=== PATIENT | female | born 1980 ===

== ENCOUNTER 2019-12-03 09:47 | Outpatient (CLI) | payer OTHER ==
--- NOTE | 2019-12-03 14:13 | Ultrasound Report ---
COMPLETE RIGHT BREAST ULTRASOUND HISTORY: Breast pain. COMPARISON: 10/01/2019 [facility] mammogram and bilateral breast ultrasound. FINDINGS: Complete sonographic evaluation including imaging of the four quadrants and subareolar aspe ct of the right breast was performed and demonstrated numerous benign cysts. The largest is at 10:00 4 cm from the nipple and measures 8 x 4 x 6 mm. It correlates with a cyst described previously to be at 8:00 on the [facility] ultrasound. A complex cyst at 10:00 4 cm from the nipple measures 8 x 4 x 6 mm. A complex cyst at 9:00 5 cm from the nipple measures 5 x 3 x 4 mm. A complex cyst at 1:00 4 cm from th e nipple measures 6 x 4 x 3 mm. No solid mass or suspicious shadowing. Note: A left breast ultrasou nd was not performed since left breast ultrasound had been performed on 10/01/2019 and was negative. T he bilateral mammogram was also reported to be negative. IMPRESSION: Benign cysts and no suspicious finding. Recommend clinical follow-up and routine mammographic screening based on ACS guidelines. BIRADS 2: Benign Signer Name: Albin Vega MD Signed: 12/03/2019 2:09 PM Workstation Name: [id number]
== END 2019-12-03 09:48 | disposition home or self-care (01) ==
LOC: SPVWC 09:47
PROVIDERS: ATTEND Surgery
DX: N60.01 Solitary cyst of right breast (principal)

== ENCOUNTER 2020-04-07 10:07 | Outpatient (CLI) | payer OTHER | END 2020-04-07 10:08 | disposition home or self-care (01) | LOC: SPVWC 10:07 | PROVIDERS: ATTEND Surgery | DX: N60.01 Solitary cyst of right breast (principal); N63.0 Unspecified lump in unspecified breast ==

== ENCOUNTER 2020-10-06 10:34 | Outpatient (CLI) | payer OTHER ==
--- NOTE | 2020-10-07 08:09 | Mammography Report ---
BILATERAL DIGITAL SCREENING MAMMOGRAM WITH CAD HISTORY: Screening mammogram, patient at high risk for breast malignancy based upon family history. TECHNIQUE: Routine digital mammographic imaging performed. This examination was interpreted with [employer] benefit of Computer-aided Detection analysis. COMPARISON: 04/07/2020, 12/03/2019, 10/01/2019. FINDINGS: Breast Density: heterogeneously dense breast parenchymal pattern which somewhat lessens the sensitivi ty of the evaluation. Digital CC and MLO views demonstrate partially obscured oval lesion in the left lateral breast at mid dle depth. No suspicious findings within the right breast. IMPRESSION: Partially obscured oval lesion in the left lateral breast for which a targeted ultrasound is recommen ded. For localization purposes, the left breast should be scanned focused from the 2:00 to the 4:00 position, 4 cm from the nipple. This may represent a cyst as multiple cysts have been noted in the ri ght breast on prior evaluations. Additional mammographic views may be indicated after the ultrasound. BIRADS 0-Incomplete: Needs additional imaging evaluation NOTE: WE WILL RECALL THE PATIENT FOR THIS ADDITIONAL EVALUATION. FURTHER INFORMATION: According to the [employer], yearly mammograms are recommend ed starting at age 40 and continuing as long as a woman is in good health. Clinical Breast Exams shou ld be part of a periodic health exam-about every 3 years for women in their 20s and 30s and every yea r for women 40 and over. Breast self exam is an option for women starting in their 20s. Any breast ch sonia noted on a breast self exam should be reported promptly to the patient's healthcare provider. Br east MRI is recommended for women with an approximately 20-25% or greater lifetime risk of breast can cer, including women with a strong family history of breast or ovarian cancer and women who have been treated for Hodgkin's disease. A negative Mammography report should not discourage follow up or biopsy of a clinically significant f inding and/or abnormality. Dense breast tissue may obscure small neoplasms. The patient will be entered into a reminder system with a target due date for the next screening mamm ogram. Signer Name: Jesús Ospina MD Signed: 10/07/2020 8:04 AM Workstation Name: [id number]
== END 2020-10-06 10:35 | disposition home or self-care (01) ==
LOC: SPVWC 10:34
PROVIDERS: ATTEND Surgery
DX: Z12.31 Encounter for screening mammogram for malignant neoplasm of breast (principal)
CPT/HCPCS: 77067

== ENCOUNTER 2020-10-27 10:35 | Outpatient (CLI) | payer OTHER ==
--- NOTE | 2020-10-27 14:09 | Mammography Report ---
LEFT DIGITAL DIAGNOSTIC MAMMOGRAM WITH CAD CONVENTIONAL, 10/27/2020 LEFT COMPLETE BREAST ULTRASOUND CLINICAL INFORMATION / INDICATION: Patient presents as a callback from screening mammogram for furthe r evaluation of an oval lesion in the left breast. Patient also reports an area of palpable concern i n the left breast. L BRST MASS- PALPABLE TECHNIQUE: Digital left mammographic imaging was performed. Spot compression views were obtained. Com plete ultrasound of all four (4) quadrants was performed. This examination was interpreted with the b enefit of Computer-Aided Detection (CAD) analysis. COMPARISON: Prior mammogram 10/06/2020 FINDINGS: Breast Density: The breasts are heterogeneously dense, which may obscure small masses. MAMMOGRAPHIC FINDINGS: The previously described oval lesion in the 3:00 position of the left breast, middle depth, is less conspicuous on spot compression views and has the appearance of focal dense fib roglandular tissue. Complete left breast ultrasound was subsequently performed for further evaluation of this area as well as the reported area of palpable concern in the left breast. ULTRASOUND FINDINGS: Complete sonographic evaluation of all 4 quadrants and retroareolar region was p erformed. There is an incidental oval circumscribed hypoechoic mass in the left breast 12:00 positi on located 2 cm from the nipple measuring up to 1.5 x 0.6 x 1.0 cm. The mass is parallel. There is no internal vascularity. There is increased through transmission. Corresponding with the site of palpab le concern in the left breast 1:00 position located 2 cm from the nipple, there is probable focal fib rocystic change measuring up to 6 mm. Ultrasound of the 3:00 position of the left breast reveals dens e fibrocystic tissue without discrete lesion to correspond with the previously questioned oval lesion . Incidental note is made of several scattered subcentimeter cysts throughout the left breast, the la rgest in the 11:00 position located 2 cm from the nipple measuring up to 8mm. IMPRESSION: 1. Probable focal fibrocystic tissue is seen of the area of palpable concern in the left breast. Fortino tionally, there is an incidental oval circumscribed hypoechoic mass in the left breast which is consi dered probably benign and most likely represents a fibroadenoma. Recommend left breast ultrasound in 6 months to ensure stability of these findings. 2. The previously described mammographic lesion is less conspicuous on additional views and is most c ompatible with dense fibrocystic tissue. Follow up recommendation: Short term follow up in 6 months. BI-RADS Category 3: Probably Benign. Followup in 6 months. A "normal" or negative report should not discourage follow up or biopsy of a clinically significant f inding. A written summary of these findings will be mailed to the patient. The patient will be entered into a mammography reporting system which will generate a reminder letter for the patient's next appointmen t at the appropriate interval. According to the [employer], yearly mammograms are recommended starting at age 40 and continuing as long as a woman is in good health. Breast MRI is recommended for women with an altagracia roximately 20-25% or greater lifetime risk of breast cancer, including women with a strong family his tory of breast or ovarian cancer and women who have been treated for Hodgkin's disease. Signer Name: Isabella Hall MD Signed: 10/27/2020 2:05 PM Workstation Name: [id number]
== END 2020-10-27 10:36 | disposition home or self-care (01) ==
LOC: SPVWC 10:35
PROVIDERS: ATTEND Surgery
DX: N63.21 Unspecified lump in the left breast, upper outer quadrant (principal); N60.32 Fibrosclerosis of left breast; R92.8 Other abnormal and inconclusive findings on diagnostic imaging of breast

== ENCOUNTER 2021-03-31 08:01 | Outpatient (CLI) | payer OTHER | END 2021-03-31 08:02 | disposition home or self-care (01) | LOC: SPVWC 08:01 | DX: N63.21 Unspecified lump in the left breast, upper outer quadrant (principal); N60.32 Fibrosclerosis of left breast; R92.8 Other abnormal and inconclusive findings on diagnostic imaging of breast ==